=== PATIENT | male | born 1950 | race Caucasian/White ===

== ENCOUNTER 2017-10-10 13:49 | Inpatient (IN) | payer MEDICARE, MEDICAID ==
[~2017-10-10] VITALS: Ht 177.8 cm; Wt 118.6 kg
[2017-10-10 15:51] VITALS: BP 156/66; PULSE 96; TEMP 98
[2017-10-10] MEDS ORDERED: FLEXERIL 1010 MG/TAB PO (15:59)
[2017-10-10] MEDS ORDERED: ULTRAM 50MG TAB50 MG PO (16:01)
[2017-10-10] MEDS ORDERED: ARICEPT 5MG PO (16:05)
[2017-10-10] MEDS ORDERED: KEPPRA 500MG500 MG PO (16:06)
[2017-10-10] MEDS ORDERED: TYLENOL 500MG500 MG (16:07)
[2017-10-10] MEDS ORDERED: PROTONIX I40 MG/VIAL (16:08)
[2017-10-10] MEDS ORDERED: ZOLOFT 100MG100 MG PO (16:10)
[2017-10-10] MEDS ORDERED: LOVENOX 300MG SQ (16:10)
[2017-10-10] MEDS ORDERED: VANCOCIN HCL 5200 ML IV (16:10)
[2017-10-10] MEDS ORDERED: CLARITIN 1010 MG/TAB PO (16:11)
[2017-10-10] MEDS ORDERED: NORVASC 5MG5 MG/TAB PO (16:11)
[2017-10-10] MEDS ORDERED: ZESTRIL 10MG10 MG PO (16:12)
[2017-10-10] MEDS ORDERED: XOPENEX 1.1.25 MG/3 IH (16:13)
[2017-10-10] MEDS ORDERED: LASIX 40MG40 MG/4 ML IJ (16:15)
[2017-10-10] MEDS ORDERED: MOBIC 7.5MG7.5 MG PO (16:15)
[2017-10-10] MEDS ORDERED: LASIX 40MG TABL40 MG PO (16:19)
[2017-10-10] MEDS ORDERED: PULMICORT0.5 MG/2 M IH (16:20)
[2017-10-10 17:24] LABS: BASO # 0.2 (0.0-0.2); BASO % 1.2 % (0.0-2.0); EOS # 0.6 (0.0-0.7); EOS % 4.6 % (0-4.0); GRAN # 9.5 (1.4-6.5); GRAN % 72.7 % (42.2-75.2); LYMPH # 1.5 (1.2-3.4); LYMPH % 11.6 % (20.0-51.0); MEAN CELL VOLUME 73 fl (80.0-100.0); MEAN CORPUSCULAR HGB CONC 30 g/dl (33.0-37.0); MEAN PLATELET VOLUME 7.8 fl (7.4-10.4); MONO # 1.2 (0.1-0.6); MONO % 9.5 % (1.7-9.3); PLATELET COUNT 625 K/mm3 (130-400); RED BLOOD COUNT 4.29 M/mm3 (4.20-5.60); REDCELL DISTRIBUTION WIDTH-CV 15.5 % (11.5-14.5)
[2017-10-10 17:26] LABS: HEMATOCRIT 31.1 % (42.0-52.0); HEMOGLOBIN 9.2 g/dl (13.5-18.0); MEAN CORPUSCULAR HEMOGLOBIN 21 pg (27.0-31.0)
[2017-10-10 17:28] LABS: ALBUMIN 3.9 gm/dL (3.5-5.0); BILIRUBIN,TOTAL 0.4 mg/dL (0.0-1.0); CREATININE, serum 0.95 mg/dL (0.66-1.25); POTASSIUM 3.8 mmol/L (3.4-5.0); TOTAL PROTEIN 7.5 gm/dL (6.4-8.2)
[2017-10-10 17:31] VITALS: BP 152/73; PULSE 79; TEMP 97.4
[2017-10-10 19:57] VITALS: BP 126/70; PULSE 99; TEMP 98.4
[2017-10-11] VITALS (7 sets, daily range): BP systolic 86–156; BP diastolic 50–83; PULSE 60–110; TEMP 97.5–98.6
[2017-10-11 07:06] LABS: BASO # 0.2 (0.0-0.2); BASO % 1.6 % (0.0-2.0); EOS # 0.6 (0.0-0.7); EOS % 5.9 % (0-4.0); GRAN # 6.9 (1.4-6.5); GRAN % 72.8 % (42.2-75.2); LYMPH # 0.8 (1.2-3.4); MEAN CELL VOLUME 72 fl (80.0-100.0); MEAN CORPUSCULAR HGB CONC 30 g/dl (33.0-37.0); MEAN PLATELET VOLUME 8.2 fl (7.4-10.4); MONO # 1.1 (0.1-0.6); MONO % 11.4 % (1.7-9.3); PLATELET COUNT 599 K/mm3 (130-400); RED BLOOD COUNT 4.06 M/mm3 (4.20-5.60); REDCELL DISTRIBUTION WIDTH-CV 15.4 % (11.5-14.5)
[2017-10-11 07:08] LABS: ANION GAP 9 mmol/L (7-16); BLOOD UREA NITROGEN 13 mg/dL (9-20); CALCIUM 8.7 mg/dL (8.4-10.2); CARBON DIOXIDE 32 mmol/L (22-30); CHLORIDE 92 mmol/L (98-107); CREATININE, serum 0.92 mg/dL (0.66-1.25); GLUCOSE 94 mg/dL (74-106); POTASSIUM 3.8 mmol/L (3.4-5.0); SODIUM 133 mmol/L (137-145)
[2017-10-11 07:15] LABS: HEMATOCRIT 29.2 % (42.0-52.0); HEMOGLOBIN 8.7 g/dl (13.5-18.0); MEAN CORPUSCULAR HEMOGLOBIN 21 pg (27.0-31.0)
[2017-10-11 07:24] LABS: IRON,SERUM < 10 ug/dL (35-150)
[2017-10-11 07:26] LABS: TOTAL IRON BINDING CAPACITY 368 ug/dL (261-462)
[2017-10-11 07:43] LABS: FERRITIN 14 ng/mL (18-464)
[2017-10-11 13:11] LABS: INR 1.2 (0.8-3.0); PROTHROMBIN TIME 13.5 SECONDS (9.7-12.8)
[2017-10-11 16:07] LABS: PLEURAL FLUID RBC 1000 /mm3 (0-0); PLEURAL FLUID WBC 393 /mm3
[2017-10-11 16:15] LABS: PLEURAL FLUID APPEARANCE CLEAR; PLEURAL FLUID COLOR YELLOW
[2017-10-11 16:40] LABS: GLUCOSE,PLEURAL FLUID 87 mg/dL; TOTAL PROTEIN,PLEURAL FLUID 2.4 gm/dL
[2017-10-12 07:13] VITALS: BP 131/69; PULSE 98; TEMP 97.9
[2017-10-12 07:34] LABS: BASO # 0.1 (0.0-0.2); BASO % 1.4 % (0.0-2.0); EOS # 0.4 (0.0-0.7); EOS % 4.7 % (0-4.0); GRAN % 64.2 % (42.2-75.2); LYMPH # 0.8 (1.2-3.4); LYMPH % 10.7 % (20.0-51.0); MEAN CELL VOLUME 71 fl (80.0-100.0); MEAN CORPUSCULAR HGB CONC 30 g/dl (33.0-37.0); MEAN PLATELET VOLUME 8.3 fl (7.4-10.4); MONO # 1.5 (0.1-0.6); MONO % 18.7 % (1.7-9.3); RED BLOOD COUNT 3.85 M/mm3 (4.20-5.60); REDCELL DISTRIBUTION WIDTH-CV 15.5 % (11.5-14.5)
[2017-10-12 07:41] LABS: HEMATOCRIT 27.5 % (42.0-52.0); HEMOGLOBIN 8.3 g/dl (13.5-18.0); MEAN CORPUSCULAR HEMOGLOBIN 22 pg (27.0-31.0)
[2017-10-12 07:42] LABS: PLATELET COUNT 481 K/mm3 (130-400)
[2017-10-12 07:52] LABS: CALCIUM 8.7 mg/dL (8.4-10.2); CREATININE, serum 0.95 mg/dL (0.66-1.25); POTASSIUM 3.6 mmol/L (3.4-5.0)
[2017-10-12 11:20] VITALS: BP 124/62; PULSE 101; TEMP 97.8
[2017-10-12 15:50] VITALS: BP 126/60; PULSE 92; TEMP 98.3
[2017-10-12 19:39] VITALS: BP 121/91; PULSE 87; TEMP 98.2
[2017-10-13 04:41] VITALS: BP 128/75; PULSE 79
[2017-10-13 06:57] LABS: BASO # 0.1 (0.0-0.2); EOS # 0.3 (0.0-0.7); EOS % 3.6 % (0-4.0); GRAN # 4.9 (1.4-6.5); GRAN % 62.1 % (42.2-75.2); LYMPH # 1.2 (1.2-3.4); MEAN CELL VOLUME 73 fl (80.0-100.0); MEAN CORPUSCULAR HGB CONC 29 g/dl (33.0-37.0); MEAN PLATELET VOLUME 8.4 fl (7.4-10.4); MONO # 1.4 (0.1-0.6); MONO % 17.9 % (1.7-9.3); PLATELET COUNT 442 K/mm3 (130-400); RED BLOOD COUNT 3.66 M/mm3 (4.20-5.60); REDCELL DISTRIBUTION WIDTH-CV 15.5 % (11.5-14.5)
[2017-10-13 06:58] LABS: HEMATOCRIT 26.7 % (42.0-52.0); HEMOGLOBIN 7.8 g/dl (13.5-18.0); MEAN CORPUSCULAR HEMOGLOBIN 21 pg (27.0-31.0)
[2017-10-13 07:09] LABS: CALCIUM 8.6 mg/dL (8.4-10.2); POTASSIUM 3.8 mmol/L (3.4-5.0)
[2017-10-13 08:28] VITALS: BP 116/50; PULSE 71; TEMP 98.9
[2017-10-13 11:35] VITALS: BP 118/64; PULSE 79; TEMP 98.9
[2017-10-13 16:00] VITALS: BP 131/59; PULSE 91; TEMP 98.9
[2017-10-13 20:00] VITALS: BP 102/63; PULSE 91; TEMP 97.8
[2017-10-14] VITALS (10 sets, daily range): BP systolic 98–139; BP diastolic 49–68; PULSE 39–94; TEMP 96.5–98.5
[2017-10-14 06:24] LABS: BASO # 0.1 (0.0-0.2); EOS # 0.6 (0.0-0.7); EOS % 6.7 % (0-4.0); GRAN % 60.4 % (42.2-75.2); LYMPH # 1.6 (1.2-3.4); LYMPH % 18.8 % (20.0-51.0); MEAN CELL VOLUME 72 fl (80.0-100.0); MEAN CORPUSCULAR HGB CONC 30 g/dl (33.0-37.0); MEAN PLATELET VOLUME 8.7 fl (7.4-10.4); MONO # 1.1 (0.1-0.6); MONO % 12.9 % (1.7-9.3); PLATELET COUNT 404 K/mm3 (130-400); RED BLOOD COUNT 3.64 M/mm3 (4.20-5.60); REDCELL DISTRIBUTION WIDTH-CV 15.7 % (11.5-14.5)
[2017-10-14 06:29] LABS: HEMATOCRIT 26.1 % (42.0-52.0); HEMOGLOBIN 7.8 g/dl (13.5-18.0); MEAN CORPUSCULAR HEMOGLOBIN 21 pg (27.0-31.0)
[2017-10-14 06:43] LABS: CALCIUM 8.6 mg/dL (8.4-10.2); CREATININE, serum 1.07 mg/dL (0.66-1.25); POTASSIUM 3.6 mmol/L (3.4-5.0)
[2017-10-15] VITALS (9 sets, daily range): BP systolic 62–115; BP diastolic 20–63; PULSE 81–87; TEMP 97.5–98.6
[2017-10-15 04:07] LABS: CALCIUM 8.6 mg/dL (8.4-10.2); CREATININE, serum 1.14 mg/dL (0.66-1.25); POTASSIUM 3.5 mmol/L (3.4-5.0)
[2017-10-15 04:21] LABS: TROPONIN-I 0.035 ng/mL (0.000-0.034)
[2017-10-15 04:29] LABS: BASO # 0.1 (0.0-0.2); BASO % 0.9 % (0.0-2.0); EOS # 0.6 (0.0-0.7); GRAN # 5.7 (1.4-6.5); GRAN % 63.2 % (42.2-75.2); LYMPH # 1.5 (1.2-3.4); LYMPH % 16.9 % (20.0-51.0); MEAN CELL VOLUME 72 fl (80.0-100.0); MEAN CORPUSCULAR HGB CONC 30 g/dl (33.0-37.0); MONO % 11.6 % (1.7-9.3); PLATELET COUNT 409 K/mm3 (130-400); RED BLOOD COUNT 3.65 M/mm3 (4.20-5.60); REDCELL DISTRIBUTION WIDTH-CV 15.8 % (11.5-14.5)
[2017-10-15 04:53] LABS: HEMATOCRIT 26.3 % (42.0-52.0); HEMOGLOBIN 7.8 g/dl (13.5-18.0); MEAN CORPUSCULAR HEMOGLOBIN 21 pg (27.0-31.0)
[2017-10-16 03:13] VITALS: BP 119/56; PULSE 90; TEMP 97.7
[2017-10-16 05:47] LABS: MEAN CELL VOLUME 72 fl (80.0-100.0); MEAN CORPUSCULAR HGB CONC 30 g/dl (33.0-37.0); MEAN PLATELET VOLUME 8.6 fl (7.4-10.4); PLATELET COUNT 379 K/mm3 (130-400); RED BLOOD COUNT 3.79 M/mm3 (4.20-5.60); REDCELL DISTRIBUTION WIDTH-CV 15.8 % (11.5-14.5)
[2017-10-16 05:56] LABS: HEMATOCRIT 27.4 % (42.0-52.0); HEMOGLOBIN 8.1 g/dl (13.5-18.0); MEAN CORPUSCULAR HEMOGLOBIN 21 pg (27.0-31.0)
[2017-10-16 06:00] LABS: CALCIUM 8.6 mg/dL (8.4-10.2); CREATININE, serum 1.33 mg/dL (0.66-1.25)
[2017-10-16 06:15] LABS: BAND 5 % (0-10); LYMPHOCYTE 13 % (20.0-51.0); NEUTROPHILS 75 % (42.0-75.2); PLATELET ESTIMATE NORMAL (NORMAL)
[2017-10-16 06:16] LABS: HYPOCHROMIA 1+
[2017-10-16 07:31] VITALS: BP 100/79; PULSE 82; TEMP 97.5
[2017-10-16 11:47] VITALS: BP 109/62; PULSE 77; TEMP 97.9
[2017-10-16 15:31] LABS: PLEURAL FLUID RBC 4000 /mm3 (0-0); PLEURAL FLUID WBC 772 /mm3
[2017-10-16 15:33] LABS: PLEURAL FLUID APPEARANCE CLEAR; PLEURAL FLUID COLOR YELLOW
[2017-10-16 15:41] LABS: GLUCOSE,PLEURAL FLUID 67 mg/dL; TOTAL PROTEIN,PLEURAL FLUID 3.3 gm/dL
[2017-10-16 16:06] VITALS: BP 103/54; PULSE 70; TEMP 98.2
[2017-10-16 19:42] VITALS: BP 103/55; PULSE 70; TEMP 97.6
[2017-10-17 00:29] VITALS: BP 118/54; PULSE 83; TEMP 97.7
[2017-10-17 07:50] VITALS: BP 129/59; PULSE 89; TEMP 98.2
[2017-10-17 08:44] LABS: BASO # 0.1 (0.0-0.2); BASO % 0.9 % (0.0-2.0); EOS # 0.7 (0.0-0.7); EOS % 5.2 % (0-4.0); GRAN # 8.7 (1.4-6.5); GRAN % 68.5 % (42.2-75.2); LYMPH # 1.8 (1.2-3.4); LYMPH % 14.5 % (20.0-51.0); MEAN CELL VOLUME 72 fl (80.0-100.0); MEAN CORPUSCULAR HGB CONC 30 g/dl (33.0-37.0); MEAN PLATELET VOLUME 9.3 fl (7.4-10.4); MONO # 1.3 (0.1-0.6); MONO % 10.4 % (1.7-9.3); PLATELET COUNT 346 K/mm3 (130-400); REDCELL DISTRIBUTION WIDTH-CV 15.9 % (11.5-14.5)
[2017-10-17 08:45] LABS: HEMOGLOBIN 8.3 g/dl (13.5-18.0); MEAN CORPUSCULAR HEMOGLOBIN 21 pg (27.0-31.0)
[2017-10-17 08:51] LABS: CALCIUM 8.6 mg/dL (8.4-10.2); CREATININE, serum 1.47 mg/dL (0.66-1.25); POTASSIUM 3.8 mmol/L (3.4-5.0)
[2017-10-17 12:50] VITALS: BP 120/52; PULSE 87; TEMP 98.2
[2017-10-17 15:50] VITALS: BP 138/54; PULSE 89; TEMP 98.2
[2017-10-17 19:33] VITALS: BP 108/64; PULSE 77; TEMP 98.6
[2017-10-17 22:35] LABS: MUCOUS Present /lpf; PH 5 (5-8); SQUAMOUS EPITHELIAL 0-2 /hpf; URINE APPEARANCE Hazy; URINE BACTERIA Rare /hpf; URINE BILIRUBIN Negative (NEGATIVE); URINE BLOOD 1+ (NEGATIVE); URINE COLOR Yellow; URINE GLUCOSE Negative (NEGATIVE); URINE KETONE Negative (NEGATIVE); URINE LEUKOCYTE ESTERASE Negative (NEGATIVE); URINE NITRATE Negative (NEGATIVE); URINE PROTEIN(semi-quant) 1+ (NEGATIVE); URINE RBC None Seen /hpf; URINE UROBILINOGEN Negative (NEGATIVE)
[2017-10-17 22:48] LABS: CREATININE, serum 1.54 mg/dL (0.66-1.25)
[2017-10-17 22:49] LABS: FRACTIONAL EXCRETION OF NA+ 0.2 %
[2017-10-17 22:51] LABS: COLLECTION METHOD CLEAN CATCH
[2017-10-17 23:51] VITALS: BP 111/60; PULSE 74; TEMP 97.7
[2017-10-18 03:37] VITALS: BP 104/48; PULSE 68; TEMP 98
[2017-10-18 07:15] LABS: BASO # 0.1 (0.0-0.2); BASO % 0.8 % (0.0-2.0); EOS % 8.5 % (0-4.0); GRAN # 7.3 (1.4-6.5); GRAN % 65.1 % (42.2-75.2); LYMPH # 1.5 (1.2-3.4); LYMPH % 13.8 % (20.0-51.0); MEAN CELL VOLUME 72 fl (80.0-100.0); MEAN CORPUSCULAR HGB CONC 29 g/dl (33.0-37.0); MEAN PLATELET VOLUME 9.9 fl (7.4-10.4); MONO # 1.3 (0.1-0.6); MONO % 11.4 % (1.7-9.3); PLATELET COUNT 276 K/mm3 (130-400); RED BLOOD COUNT 3.85 M/mm3 (4.20-5.60); REDCELL DISTRIBUTION WIDTH-CV 16.1 % (11.5-14.5)
[2017-10-18 07:16] LABS: HEMATOCRIT 27.8 % (42.0-52.0); HEMOGLOBIN 8.1 g/dl (13.5-18.0); MEAN CORPUSCULAR HEMOGLOBIN 21 pg (27.0-31.0)
[2017-10-18 07:27] LABS: CALCIUM 8.4 mg/dL (8.4-10.2); CREATININE, serum 1.46 mg/dL (0.66-1.25); POTASSIUM 3.9 mmol/L (3.4-5.0)
[2017-10-18 08:18] VITALS: BP 109/65; PULSE 102; TEMP 97.9
[2017-10-18 08:57] VITALS: BP 106/56; PULSE 70; TEMP 97.8
[2017-10-18 12:01] VITALS: BP 110/60; PULSE 76; TEMP 97.8
[2017-10-18 16:27] VITALS: BP 103/53; PULSE 56; TEMP 98.2
[2017-10-18 19:14] VITALS: BP 146/104; PULSE 71; TEMP 98.4
[2017-10-19 00:45] VITALS: BP 130/62; PULSE 74; TEMP 96.6
[2017-10-19 04:12] VITALS: BP 115/77; PULSE 70; TEMP 98.2
[2017-10-19 07:49] VITALS: BP 101/55; PULSE 68; TEMP 97.8
[2017-10-19 10:24] LABS: BASO # 0.1 (0.0-0.2); BASO % 1.2 % (0.0-2.0); EOS % 11.8 % (0-4.0); GRAN # 5.6 (1.4-6.5); LYMPH # 1.1 (1.2-3.4); LYMPH % 12.4 % (20.0-51.0); MEAN CELL VOLUME 71 fl (80.0-100.0); MEAN CORPUSCULAR HGB CONC 30 g/dl (33.0-37.0); MEAN PLATELET VOLUME 9.8 fl (7.4-10.4); MONO # 0.8 (0.1-0.6); MONO % 8.9 % (1.7-9.3); PLATELET COUNT 364 K/mm3 (130-400); RED BLOOD COUNT 3.83 M/mm3 (4.20-5.60); REDCELL DISTRIBUTION WIDTH-CV 15.9 % (11.5-14.5)
[2017-10-19 10:27] LABS: HEMOGLOBIN 8.1 g/dl (13.5-18.0); MEAN CORPUSCULAR HEMOGLOBIN 21 pg (27.0-31.0)
[2017-10-19 10:35] LABS: CALCIUM 8.1 mg/dL (8.4-10.2); CREATININE, serum 1.48 mg/dL (0.66-1.25); POTASSIUM 4.1 mmol/L (3.4-5.0)
[2017-10-19 11:13] VITALS: BP 97/80; PULSE 68; TEMP 98
[2017-10-19 16:15] VITALS: BP 113/48; PULSE 72; TEMP 98
[2017-10-19 20:15] VITALS: BP 115/62; PULSE 78; TEMP 98.1
[2017-10-20 04:59] VITALS: BP 103/44; PULSE 64; TEMP 97.7
[2017-10-20 06:22] LABS: MEAN CELL VOLUME 73 fl (80.0-100.0); MEAN CORPUSCULAR HGB CONC 29 g/dl (33.0-37.0); MEAN PLATELET VOLUME 9.3 fl (7.4-10.4); PLATELET COUNT 395 K/mm3 (130-400); RED BLOOD COUNT 4.51 M/mm3 (4.20-5.60); REDCELL DISTRIBUTION WIDTH-CV 16.2 % (11.5-14.5)
[2017-10-20 06:23] LABS: HEMATOCRIT 32.8 % (42.0-52.0); HEMOGLOBIN 9.5 g/dl (13.5-18.0); MEAN CORPUSCULAR HEMOGLOBIN 21 pg (27.0-31.0)
[2017-10-20 08:06] VITALS: BP 112/52; PULSE 66
[2017-10-20 08:56] LABS: ANISOCYTOSIS 1+; BAND 5 % (0-10); BASOPHIL 3 % (0-2); LYMPHOCYTE 12 % (20.0-51.0); MICROCYTOSIS 1+; NEUTROPHILS 71 % (42.0-75.2); NUCLEATED RED BLOOD CELL 2 (0-6); PLATELET ESTIMATE NORMAL (NORMAL)
[2017-10-20 08:57] LABS: HYPOCHROMIA 1+; OVALOCYTES 2+
[2017-10-20 17:36] VITALS: BP 101/62; PULSE 79; TEMP 98.6
[2017-10-20 19:14] VITALS: BP 110/60; PULSE 70; TEMP 98.4
[2017-10-21] VITALS (7 sets, daily range): BP systolic 12–122; BP diastolic 44–80; PULSE 64–74; TEMP 97.6–98.1
[2017-10-21 06:43] LABS: CALCIUM 8.4 mg/dL (8.4-10.2); CREATININE, serum 1.5 mg/dL (0.66-1.25); POTASSIUM 4.1 mmol/L (3.4-5.0)
[2017-10-22 03:35] VITALS: BP 93/47; PULSE 67; TEMP 97.7
[2017-10-22 06:40] LABS: BASO # 0.1 (0.0-0.2); BASO % 0.9 % (0.0-2.0); EOS # 1.2 (0.0-0.7); EOS % 10.9 % (0-4.0); GRAN # 6.3 (1.4-6.5); GRAN % 59.2 % (42.2-75.2); LYMPH # 1.6 (1.2-3.4); LYMPH % 14.9 % (20.0-51.0); MEAN CELL VOLUME 71 fl (80.0-100.0); MEAN CORPUSCULAR HGB CONC 30 g/dl (33.0-37.0); MEAN PLATELET VOLUME 9.8 fl (7.4-10.4); MONO # 1.4 (0.1-0.6); MONO % 13.4 % (1.7-9.3); PLATELET COUNT 324 K/mm3 (130-400); RED BLOOD COUNT 3.79 M/mm3 (4.20-5.60); REDCELL DISTRIBUTION WIDTH-CV 16.4 % (11.5-14.5)
[2017-10-22 06:42] LABS: HEMOGLOBIN 8.1 g/dl (13.5-18.0); MEAN CORPUSCULAR HEMOGLOBIN 21 pg (27.0-31.0)
[2017-10-22 06:53] LABS: CALCIUM 8.4 mg/dL (8.4-10.2); CREATININE, serum 1.47 mg/dL (0.66-1.25); POTASSIUM 4.2 mmol/L (3.4-5.0)
[2017-10-22 07:38] VITALS: BP 113/48; PULSE 79; TEMP 98.2
[2017-10-22 11:41] VITALS: BP 105/55; PULSE 70; TEMP 97.9
[2017-10-22 16:04] VITALS: BP 107/52; PULSE 75; TEMP 98.2
[2017-10-22 20:08] VITALS: BP 114/54; PULSE 79; TEMP 97.5
[2017-10-23 00:52] VITALS: BP 102/50; PULSE 75
[2017-10-23 04:54] VITALS: BP 126/74; PULSE 80; TEMP 98.2
[2017-10-23 06:40] LABS: HEMATOCRIT 28.6 % (42.0-52.0); HEMOGLOBIN 8.6 g/dl (13.5-18.0)
[2017-10-23 06:45] LABS: CALCIUM 8.5 mg/dL (8.4-10.2); CREATININE, serum 1.52 mg/dL (0.66-1.25); POTASSIUM 4.2 mmol/L (3.4-5.0)
[2017-10-23 07:06] VITALS: BP 106/51; PULSE 72; TEMP 98.6
[2017-10-23 11:10] VITALS: BP 118/53; PULSE 72; TEMP 98.7
[2017-10-23 15:20] VITALS: BP 127/61; PULSE 80; TEMP 98.7
[2017-10-23 18:21] VITALS: BP 110/55; PULSE 70; TEMP 98.9
[2017-10-24] VITALS (7 sets, daily range): BP systolic 101–119; BP diastolic 50–97; PULSE 67–76; TEMP 96.7–98.7
[2017-10-24 06:46] LABS: HEMATOCRIT 28.6 % (42.0-52.0); HEMOGLOBIN 8.5 g/dl (13.5-18.0)
[2017-10-24 06:56] LABS: CALCIUM 8.5 mg/dL (8.4-10.2); CREATININE, serum 1.56 mg/dL (0.66-1.25); POTASSIUM 4.2 mmol/L (3.4-5.0)
[2017-10-25 03:03] VITALS: BP 110/51; PULSE 77; TEMP 97.9
[2017-10-25 07:50] VITALS: BP 121/65; PULSE 69; TEMP 98.4
[2017-10-25 08:24] LABS: HEMATOCRIT 32.5 % (42.0-52.0); HEMOGLOBIN 9.3 g/dl (13.5-18.0)
[2017-10-25 08:35] LABS: CALCIUM 8.5 mg/dL (8.4-10.2); CREATININE, serum 1.68 mg/dL (0.66-1.25); POTASSIUM 4.5 mmol/L (3.4-5.0)
[2017-10-25 11:10] VITALS: BP 105/57; PULSE 66; TEMP 98.5
[2017-10-25 15:54] VITALS: BP 134/73; PULSE 66; TEMP 97.9
[2017-10-25 20:00] VITALS: BP 137/72; PULSE 65; TEMP 97.8
[2017-10-25 23:52] VITALS: BP 119/56; PULSE 71
[2017-10-26 03:07] VITALS: BP 97/67; PULSE 68; TEMP 97.9
[2017-10-26 05:48] LABS: HEMATOCRIT 28.8 % (42.0-52.0); HEMOGLOBIN 8.6 g/dl (13.5-18.0)
[2017-10-26 06:03] LABS: CALCIUM 8.4 mg/dL (8.4-10.2); CREATININE, serum 1.7 mg/dL (0.66-1.25); POTASSIUM 4.3 mmol/L (3.4-5.0)
[2017-10-26 07:30] VITALS: BP 121/97; PULSE 67; TEMP 97.3
[2017-10-26 11:07] VITALS: BP 110/41; PULSE 62; TEMP 98.3
[2017-10-26 15:26] VITALS: BP 114/54; PULSE 72; TEMP 97.4
[2017-10-26 18:47] VITALS: BP 106/48; PULSE 73; TEMP 97.9
[2017-10-26 23:11] VITALS: BP 126/60; PULSE 69; TEMP 97.5
[2017-10-27 04:06] VITALS: BP 103/44; PULSE 64; TEMP 98.3
[2017-10-27 07:38] VITALS: BP 103/73; PULSE 63; TEMP 98.3
[2017-10-27 08:31] LABS: CALCIUM 8.5 mg/dL (8.4-10.2); CREATININE, serum 1.56 mg/dL (0.66-1.25); POTASSIUM 4.4 mmol/L (3.4-5.0)
[2017-10-27 11:29] VITALS: BP 119/96; PULSE 63; TEMP 98.3
[2017-10-27 12:25] LABS: BASO # 0.1 (0.0-0.2); BASO % 1.3 % (0.0-2.0); EOS # 1.4 (0.0-0.7); EOS % 13.1 % (0-4.0); GRAN # 6.4 (1.4-6.5); GRAN % 59.7 % (42.2-75.2); LYMPH # 1.6 (1.2-3.4); LYMPH % 15.2 % (20.0-51.0); MEAN CELL VOLUME 73 fl (80.0-100.0); MEAN CORPUSCULAR HGB CONC 29 g/dl (33.0-37.0); MONO # 1.1 (0.1-0.6); PLATELET COUNT 547 K/mm3 (130-400); RED BLOOD COUNT 4.13 M/mm3 (4.20-5.60); REDCELL DISTRIBUTION WIDTH-CV 17.6 % (11.5-14.5)
[2017-10-27 12:28] LABS: HEMATOCRIT 30.3 % (42.0-52.0); HEMOGLOBIN 8.8 g/dl (13.5-18.0); MEAN CORPUSCULAR HEMOGLOBIN 21 pg (27.0-31.0)
[2017-10-27 16:15] VITALS: BP 133/61; PULSE 69; TEMP 97.9
[2017-10-27 19:13] VITALS: BP 117/40; PULSE 63; TEMP 97.5
[2017-10-27 23:22] VITALS: BP 105/52; PULSE 73; TEMP 97.4
[2017-10-28 06:52] LABS: CALCIUM 8.7 mg/dL (8.4-10.2); CREATININE, serum 1.7 mg/dL (0.66-1.25); POTASSIUM 4.1 mmol/L (3.4-5.0)
[2017-10-28 07:39] VITALS: BP 105/50; PULSE 60; TEMP 97.9
[2017-10-28 11:08] VITALS: BP 108/54; PULSE 63; TEMP 98
[2017-10-28 15:39] VITALS: BP 110/53; PULSE 70; TEMP 98.3
[2017-10-28 18:52] VITALS: BP 90/46; PULSE 78; TEMP 98
[2017-10-28 19:11] VITALS: BP 105/50
[2017-10-29 03:51] VITALS: BP 102/48; PULSE 72; TEMP 98.2
[2017-10-29 06:53] VITALS: BP 108/54; PULSE 79; TEMP 97.9
[2017-10-29 11:11] VITALS: BP 126/48; PULSE 77; TEMP 98.4
[2017-10-29 15:08] VITALS: BP 119/60; PULSE 80; TEMP 98.1
[2017-10-29 19:30] VITALS: BP 127/61; PULSE 80; TEMP 98.6
[2017-10-30 05:09] VITALS: BP 110/56; PULSE 84
[2017-10-30 07:00] LABS: CALCIUM 8.6 mg/dL (8.4-10.2); CREATININE, serum 1.73 mg/dL (0.66-1.25); POTASSIUM 3.7 mmol/L (3.4-5.0)
[2017-10-30 07:08] VITALS: BP 124/92; PULSE 73; TEMP 98.5
[2017-10-30 11:27] VITALS: BP 124/44; PULSE 68; TEMP 97.9
[2017-10-30 15:14] VITALS: BP 105/52; PULSE 76; TEMP 98.9
[2017-10-30 20:42] VITALS: BP 119/56; PULSE 98; TEMP 98.6
[2017-10-30 23:53] VITALS: BP 121/52; PULSE 75; TEMP 98.5
[2017-10-31 05:56] VITALS: BP 133/72; PULSE 85; TEMP 98.5
[2017-10-31 07:31] LABS: BASO # 0.2 (0.0-0.2); BASO % 1.4 % (0.0-2.0); EOS # 2.2 (0.0-0.7); EOS % 19.9 % (0-4.0); GRAN # 5.7 (1.4-6.5); GRAN % 51.5 % (42.2-75.2); LYMPH # 1.7 (1.2-3.4); LYMPH % 15.3 % (20.0-51.0); MEAN CELL VOLUME 73 fl (80.0-100.0); MEAN CORPUSCULAR HGB CONC 29 g/dl (33.0-37.0); MONO # 1.3 (0.1-0.6); MONO % 11.6 % (1.7-9.3); PLATELET COUNT 499 K/mm3 (130-400); RED BLOOD COUNT 4.46 M/mm3 (4.20-5.60); REDCELL DISTRIBUTION WIDTH-CV 18.7 % (11.5-14.5)
[2017-10-31 07:34] LABS: HEMATOCRIT 32.7 % (42.0-52.0); HEMOGLOBIN 9.6 g/dl (13.5-18.0); MEAN CORPUSCULAR HEMOGLOBIN 22 pg (27.0-31.0)
[2017-10-31] MEDS ORDERED: FERROUS SU325 MG/TAB PO (07:46)
[2017-10-31] MEDS ORDERED: TOPROL XL 50MG50 MG PO (07:49)
[2017-10-31] MEDS ORDERED: PACERONE400 MG PO (07:49)
[2017-10-31] MEDS ORDERED: LIPITOR 40MG TA40 MG PO (07:49)
[2017-10-31] MEDS ORDERED: SENNA-LAX8.6 MG PO (07:51)
[2017-10-31] MEDS ORDERED: PROTONIX 40MG T40 MG PO (07:52)
[2017-10-31 07:58] LABS: CALCIUM 8.7 mg/dL (8.4-10.2); CREATININE, serum 1.76 mg/dL (0.66-1.25); POTASSIUM 4.2 mmol/L (3.4-5.0)
[2017-10-31 08:37] VITALS: BP 113/46; PULSE 68; TEMP 98.5
[2017-10-31] MEDS ORDERED: IPRATROPIUM BROM3 M1 IH (09:00)
[2017-10-31] MEDS ORDERED: COLACE 100100 MG/CAP PO (09:00)
[2017-10-31] MEDS ORDERED: MIRALAX PA17 GM/Dose PO (09:01)
[2017-10-31] MEDS ORDERED: ULTRAM 50MG TAB50 MG PO (09:01)
[2017-10-31] MEDS ORDERED: TYLENOL 325MG325 MG PO (09:04)
[2017-10-31] MEDS ORDERED: LASIX 40MG TABL40 MG PO (09:05)
[2017-10-31] MEDS ORDERED: XANAX 0.5MG0.5 MG PO (09:05)
[2017-10-31] MEDS ORDERED: NS INT FLUSH 1010 ML IV (09:16)
== END 2017-10-31 10:00 | DRG 193 ==
LOC: MEDICAL 13:49
PROVIDERS: Hospitalist; Internal Medicine Critical Care Medicine; Internal Medicine Pulmonary Disease; Nurse Practitioner Family; Physician Assistant; Student in an Organized Health Care Education/Training Program
PROC: 0W993ZX Drainage of Right Pleural Cavity, Percutaneous Approach, Diagnostic (ICD-10-PCS; principal; 2017-10-11)
PROC: 0W9B00Z Drainage of Left Pleural Cavity with Drainage Device, Open Approach (ICD-10-PCS; 2017-10-15)
DX: J18.9 Pneumonia, unspecified organism (principal); I50.21 Acute systolic (congestive) heart failure; I21.4 Non-ST elevation (NSTEMI) myocardial infarction; J90 Pleural effusion, not elsewhere classified; E87.1 Hypo-osmolality and hyponatremia; J95.811 Postprocedural pneumothorax; I47.2 Ventricular tachycardia; N17.9 Acute kidney failure, unspecified; Z68.43 Body mass index [BMI] 50.0-59.9, adult; F79 Unspecified intellectual disabilities; I25.5 Ischemic cardiomyopathy; I11.0 Hypertensive heart disease with heart failure; G40.909 Epilepsy, unspecified, not intractable, without status epilepticus; I27.22 Pulmonary hypertension due to left heart disease; I08.3 Combined rheumatic disorders of mitral, aortic and tricuspid valves; D50.9 Iron deficiency anemia, unspecified; E87.6 Hypokalemia; E66.9 Obesity, unspecified
CPT/HCPCS: 99223-AI; 99231-AI; 99232-AI; 99233-AI; 99239; A7041; A9284; A9502; C1751; J0692; J1170; J1650; J1940; J2405; J2704; J2785; J2997; J3010; J3370; J3480; J7040; J7050; J7070